=== PATIENT | male | born 1965 | race Caucasian/White ===

== ENCOUNTER → 2019-03-05 | Outpatient (CLI) | payer BC ==
[~2019-03-05] MED LIST: ALLO300 PO; BENA20 PO; BP MED; CYCL100 PO; ERGO400 PO; HYDR-86 PO; OXYACE5T PO; PRAV20 PO
[2019-03-05 19:22] LABS: Protein, Urine Random 122.2 mg/dL (0.0-11.9)
== END | disposition home or self-care (01) ==
LOC: LAB 17:10 → LAB SHORT 17:10
PROVIDERS: Internal Medicine
DX: N18.2 Chronic kidney disease, stage 2 (mild) (principal)
CPT/HCPCS: 82570; 84156

== ENCOUNTER 2019-10-08 10:49 | Observation (INO) | payer OTHER ==
[~2019-10-08] VITALS: Ht 180.3 cm; Wt 172.4 kg
[~2019-10-08 10:49] MED LIST changes: -BENA20 PO; -ERGO400 PO; -PRAV20 PO
[2019-10-08] MEDS ORDERED: AMIODARONE HCL100 MG (10:59)
[2019-10-08 12:17] LABS: BASOPHILS ABSOLUTE AUTO 0.04 K/mm3 (0.00-0.23); BASOPHILS PERCENT AUTO 0 % (0-2); EOSINOPHILS ABSOLUTE AUTO 0.07 K/mm3 (0.00-0.68); EOSINOPHILS PERCENT AUTO 0 % (0-6); IMMATURE GRAN ABSOLUTE AUTO 0.08 K/mm3 (0.00-0.10); IMMATURE GRAN PERCENT AUTO 1 % (0-1); LYMPHOCYTES ABSOLUTE AUTO 1.27 K/mm3 (0.84-5.20); LYMPHOCYTES PERCENT AUTO 8 % (21-46); MONOCYTES ABSOLUTE AUTO 1.29 K/mm3 (0.16-1.47); MONOCYTES PERCENT AUTO 8 % (4-13); Mean Corpuscular HGB 30.8 pg (26.0-34.0); Mean Corpuscular HGB Conc 32.6 g/dL (31.5-36.5); Mean Corpuscular Volume 95 fL (80-100); Mean Platelet Volume 9.9 fL (9.1-12.4); NEUTROPHILS ABSOLUTE AUTO 12.99 K/mm3 (1.96-9.15); NEUTROPHILS PERCENT AUTO 83 % (41-73); Platelet Count 220 K/mm3 (150-400); RDW Coefficient Variation 12.4 % (11.7-14.2); RDW Standard Deviation 43.4 fL (35.1-46.3); Red Blood Cell Count 4.54 M/mm3 (4.30-5.90); White Blood Cell Count 15.74 K/mm3 (4.00-11.30)
[2019-10-08 12:47] LABS: Bun/Creatinine Ratio 14.2 (12.0-20.0); Calcium, Blood 8.8 mg/dL (8.5-10.1); Creatinine, Blood 1.48 mg/dL (0.60-1.20); Potassium, Blood 3.8 mmol/L (3.5-5.5)
[2019-10-08] MEDS ORDERED: AMLODIPINE BESY10 MG PO (13:31)
[2019-10-08] MEDS ORDERED: Lotensin40 MG PO (13:31)
[2019-10-08] MEDS ORDERED: ALLO300 PO (13:32)
[2019-10-08] MEDS ORDERED: PRAV20 PO (13:32)
[2019-10-08] MEDS ORDERED: Vitamin D2000 UNIT PO (14:12)
--- NOTE | 2019-10-08 19:00 | NUR ---
SUMMARY PT ADMITTED TO THE FLOOR FROM THE ER. HE IS AWAKE, ALERT & ORIENTED x4, ON ROOM AIR, DENIES SOB AT THIS TIME. PT IS ACCOMPANIED BY HIS & DAUGHTER. PAIN MEDICATED PER EMAR PER PT REQUEST. PT INSTRUCTED TO CALL FOR ASSISTANCE PRIOR TO GETTING OOB FOR SAFETY. REPORT WAS GIVEN TO MAKENNA COX RN. CALL LIGHT IN REACH.
--- NOTE | 2019-10-08 19:57 | NUR ---
IN TO ASSESS PT AT THIS TIME.
--- NOTE | 2019-10-09 05:20 | NUR ---
patient has been able to sleep for most of the night, he is independent in the room and in the halls. PO pain medications have helped with his body aches and pains. no acute changes. patient feels that he could go home today.
--- NOTE | 2019-10-09 11:31 | NUR ---
BLOOD PRESSURE ELEVATED, PATIENT REPORTS NOT TAKING HIS USUAL HOME MEDS SINCE SUNDAY. DISCUSSED WITH DR. VEGAS. AMLODIPINE ORDERED TO BE GIVEN PRIOR TO DISCHARGE
[2019-10-09] MEDS ORDERED: OXYC5 PO (13:13)
--- NOTE | 2019-10-09 15:43 | NUR ---
SHIFT SUMMARY; PT DISCHARGED HOME TODAY AT APPROX 1415. PT EDUCATED ON PRESCRIBED PAIN MEDICATION AND PAIN MANAGEMENT. PT INSTRUCTED ON SIGNS/SYMPTOMS OF WHEN TO CALL PROVIDER. PT DISCHARGED WITHOUT ANY FURTHER QUESTIONS OR CONCERNS.
== END 2019-10-09 14:15 | disposition home or self-care (01) ==
LOC: ER 10:49 → ERHOLD 10:50 → SURS 10:50 → ERHOLD 10:50 → SURS 18:40
PROVIDERS: Emergency Medicine; ADMIT Surgery
DX: S22.42XA Multiple fractures of ribs, left side, initial encounter for closed fracture (principal); J93.9 Pneumothorax, unspecified; S00.83XA Contusion of other part of head, initial encounter; I10 Essential (primary) hypertension; M10.9 Gout, unspecified; E66.9 Obesity, unspecified; Z79.899 Other long term (current) drug therapy; V68.5XXA Driver of heavy transport vehicle injured in noncollision transport accident in traffic accident, initial encounter
CPT/HCPCS: 70450; 70486; 71260; 72125; 73110; 74177; 80048; 85025; 96374-59; 96375-59; 96376; 99285-25; A9270-GY; J1170; J2270; J2405; Q9967

== ENCOUNTER → 2019-11-09 | Outpatient (CLI) | payer OTHER ==
[~2019-11-09] MED LIST changes: +AMIODARONE HCL100 MG; +AMLODIPINE BESY10 MG PO; +Lotensin40 MG PO; +OXYC5 PO; +PRAV20 PO; +Vitamin D2000 UNIT PO
== END | disposition home or self-care (01) ==
LOC: LAB 08:30 → LAB SHORT 08:30
DX: L08.9 Local infection of the skin and subcutaneous tissue, unspecified (principal)
CPT/HCPCS: 87070; 87205

== ENCOUNTER 2025-07-25 08:55 | Inpatient (IN) | payer OTHER ==
[~2025-07-25] VITALS: Ht 177.8 cm; Wt 152.5 kg
[2025-07-25 10:40] LABS: Alanine Aminotransfer (ALT/SGP 35.0 U/L (12-78); Albumin, Blood 3.6 g/dL (3.4-5.0); Albumin/Globulin Ratio 0.9 (0.8-1.8); Anion Gap 8.0 mmol/L (3-11); Aspartate Aminotrans (AST/SGOT 22.0 U/L (12-37); Bilirubin, Total 0.7 mg/dL (0.1-1.0); Blood Urea Nitrogen 27.0 mg/dL (8-24); CO2, Blood 30.0 mmol/L (21-32); Calcium, Blood 9.8 mg/dL (8.5-10.1); Chloride, Blood 105.0 mmol/L (98-108); Creatinine, Blood 1.54 mg/dL (0.60-1.20); Globulin, Blood 3.8 g/dL (2.2-4.0); Glucose, Blood 114.0 mg/dL (70-99); Potassium, Blood 3.7 mmol/L (3.5-5.5); Sodium, Blood 139.0 mmol/L (136-145); Total Protein, Blood 7.4 g/dL (6.4-8.2)
[2025-07-25 10:41] LABS: BASOPHILS ABSOLUTE AUTO 0.05 K/mm3 (0.00-0.23); BASOPHILS PERCENT AUTO 1 % (0-2); EOSINOPHILS ABSOLUTE AUTO 0.26 K/mm3 (0.00-0.68); EOSINOPHILS PERCENT AUTO 3 % (0-6); Hematocrit 44.2 % (37.0-53.0); Hemoglobin 14.7 g/dL (13.5-17.5); IMMATURE GRAN ABSOLUTE AUTO 0.02 K/mm3 (0.00-0.10); IMMATURE GRAN PERCENT AUTO 0 % (0-1); LYMPHOCYTES ABSOLUTE AUTO 1.62 K/mm3 (0.84-5.20); LYMPHOCYTES PERCENT AUTO 18 % (21-46); MONOCYTES ABSOLUTE AUTO 0.88 K/mm3 (0.16-1.47); MONOCYTES PERCENT AUTO 10 % (4-13); Mean Corpuscular HGB Conc 33.3 g/dL (31.5-36.5); Mean Corpuscular Volume 90 fL (80-100); NEUTROPHILS ABSOLUTE AUTO 6.07 K/mm3 (1.96-9.15); NEUTROPHILS PERCENT AUTO 68 % (41-73); NRBC ABSOLUTE 0.00 K/mm3 (0.00-0.02); NRBC Auto 0.0 /100 WBC (0.0-0.2); Platelet Count 246 K/mm3 (150-400); RDW Coefficient Variation 12.1 % (11.7-14.2); RDW Standard Deviation 39.8 fL (35.1-46.3)
[2025-07-25] MEDS ORDERED: Ondansetron HCl 2 MG / ML 2ML Vial IV ONE (12:15)
[2025-07-25] MEDS ORDERED: Prochlorperazine Edisylate 10 mg Vial IV PRN (15:15)
[2025-07-25] MEDS ORDERED: FLU VACC TS2025-26(6MOS UP)/PF 45 MCG/0.5 ML SYRINGE IM SCH (15:15)
[2025-07-25] MEDS ORDERED: NS 1,000 ML IV SCH (15:15)
[2025-07-25] MEDS ORDERED: Diazepam 5 MG / ML 2ML SYR IV ONE (15:50)
[2025-07-25] MEDS ORDERED: Benzocaine Oral Spray 0.5ML UD MT ONE (15:55)
--- NOTE | 2025-07-25 16:43 | NUR ---
ADMISSION NOTE: PATIENT ARRIVED TO THE UNIT VIA GURNEY. HE WAS ABLE TO SELF TRANSFER ONTO THE BED. NG TUBE NOT PLACED; UNSUCCESSFUL X2 IN ER. DR. BRANCH NOTIFIED. CALL MADE TO DR. CAMERON IZAGUIRRE; HE STATES TO KEEP PATIENT NPO AND HE WILL BE COMING BY TO SEE THE PATIENT. PATIENT SETTLED IN ROOM, CALL LIGHT WITHIN REACH, NO SIGNS OR SYMPTOMS OF DISTRESS,PLAN OF CARE ONGOING.
[2025-07-25 16:48] VITALS: BP 131/80
[2025-07-25] MEDS ORDERED: CENTRUM SILVER1 EAC2 PO (17:00)
[2025-07-25 20:07] VITALS: BP 154/83
[2025-07-25] MEDS ORDERED: Pantoprazole Sodium 40 MG Injection IV SCH (21:00)
[2025-07-26 04:25] VITALS: BP 145/82
--- NOTE | 2025-07-26 04:55 | NUR ---
SHIFT SUMMARY PATIENT A&OX4, INDEPENDENT, ABLE TO MAKE NEEDS KNOWN, CALL LIGHT WITHIN REACH. BED AT LOWEST LEVEL, AT BEDSIDE. PATIENT DID NOT TOLERATE NG TUBE, AND GI DOC AWARE. SCHEDULED FOR A 11AM PROCEDURE EGD WITH ANESTESHIA. ENEMA PER EMAR WAS SUCCESSFUL IN PASSING WHAT THE PATIENT CLAIM WAS A SUBSTANTIAL AMOUNT OF STOOL, AFTER WORDS HAD SOME GAS PASSED BUT NONE SINCE THAT HOUR AFTER THE MED. PATIENTS FAMILY HAD SOME MORE QUESTIONS BEFORE PROCEDURE WILL LET DAYSHIFT KNOW.
[2025-07-26 05:33] LABS: Hematocrit 41.2 % (37.0-53.0); Hemoglobin 13.5 g/dL (13.5-17.5); Mean Corpuscular HGB Conc 32.8 g/dL (31.5-36.5); Mean Corpuscular Volume 92 fL (80-100); NRBC ABSOLUTE 0.00 K/mm3 (0.00-0.02); NRBC Auto 0.0 /100 WBC (0.0-0.2); Platelet Count 213 K/mm3 (150-400); RDW Coefficient Variation 12.3 % (11.7-14.2); RDW Standard Deviation 41.2 fL (35.1-46.3)
[2025-07-26 06:07] LABS: Albumin, Blood 3.4 g/dL (3.4-5.0); Anion Gap 11 mmol/L (3-11); Blood Urea Nitrogen 26 mg/dL (8-24); CO2, Blood 29 mmol/L (21-32); Calcium, Blood 9.1 mg/dL (8.5-10.1); Chloride, Blood 105 mmol/L (98-108); Creatinine, Blood 1.60 mg/dL (0.60-1.20); Glucose, Blood 106 mg/dL (70-99); Magnesium, Blood 2.1 mg/dL (1.6-2.4); Phosphorus, Blood 4.2 mg/dL (2.5-4.9); Potassium, Blood 3.7 mmol/L (3.5-5.5); Sodium, Blood 141 mmol/L (136-145)
[2025-07-26 07:24] VITALS: BP 162/89
[2025-07-26 15:32] VITALS: BP 163/87
--- NOTE | 2025-07-26 19:16 | NUR ---
ASSUMED CARE OF PT. PT UP IN BED NPO AND AWAITING FOR EGD. 1030 PT TAKEN DOWNSTAIRS FOR EGD, BUT WAS QUICKLY RETURN, PRPCEDURE TO BE PERFORMED IN THE MORNING, PT AT RISK FOR ASPIRATION AND REPEAT CT SCAN WILL BE DONE BEFORE EGD ATTEMPT. PT SPENT SHIFT AMB IN [place], DO C/O PAIN NO DISTRESS
[2025-07-26 19:30] VITALS: BP 141/80
[2025-07-27 04:45] LABS: Hematocrit 36.7 % (37.0-53.0); Hemoglobin 12.1 g/dL (13.5-17.5); Mean Corpuscular HGB Conc 33.0 g/dL (31.5-36.5); Mean Corpuscular Volume 92 fL (80-100); NRBC ABSOLUTE 0.00 K/mm3 (0.00-0.02); NRBC Auto 0.0 /100 WBC (0.0-0.2); Platelet Count 214 K/mm3 (150-400); RDW Coefficient Variation 12.3 % (11.7-14.2); RDW Standard Deviation 41.6 fL (35.1-46.3)
[2025-07-27 05:03] VITALS: BP 153/71
[2025-07-27 05:22] LABS: Albumin, Blood 3.1 g/dL (3.4-5.0); Anion Gap 9 mmol/L (3-11); Blood Urea Nitrogen 25 mg/dL (8-24); CO2, Blood 24 mmol/L (21-32); Calcium, Blood 8.2 mg/dL (8.5-10.1); Chloride, Blood 113 mmol/L (98-108); Creatinine, Blood 1.40 mg/dL (0.60-1.20); Glucose, Blood 90 mg/dL (70-99); Magnesium, Blood 2.1 mg/dL (1.6-2.4); Phosphorus, Blood 3.1 mg/dL (2.5-4.9); Potassium, Blood 3.8 mmol/L (3.5-5.5); Sodium, Blood 142 mmol/L (136-145)
--- NOTE | 2025-07-27 06:04 | NUR ---
SHIFT SUMMARY PATIENT A&OX4, INDEPENDENT, ABLE TO MAKE NEEDS KNOWN, CALL LIGHT WITHIN REACH, BED AT LOWEST LEVEL. PATIENT HAD A SMALL BM WITH COMPACTED STOOL CHUNKS, AND WHAT SEEMED TO BE UNDIGESTED CHICKEN. PATIENT STATED SOME FARTS AFTER ENEMA, BUT HAS NOT PASSED GAS AFTER ABOUT AN HOUR AFTER THE ENEMA. IT SEEMS LIKE THE STOOL HAD SOME MUCOUS STRINGY PARTS TO IT, IT WAS DARKER STOOL. GOING FOR IMAGING TODAY.
[2025-07-27 07:25] VITALS: BP 149/75
[2025-07-27 15:58] VITALS: BP 150/89
--- NOTE | 2025-07-27 17:45 | NUR ---
END OF SHIFT NOTE PATIENT RESTING IN CHAIR WITH FAMILY IN ROOM. A&O4, IND IN ROOM, AMBULATES HALLWAYS. PATIENT NPO, UNDERSTANDS PLAN. SURGERY DID NOT GO THROUGH TODAY, TALK ABOUT TRANSFER OUT TO ANOTHER HOSPITAL DUE TO RISK OF SURGERY. PATIENT AND FAMILY AWARE. DR BRANCH TALKED TO PATIENT AND FAMILY THIS EVENING AFTER NEW PLANS WERE MADE. PATIENT AWARE THIS MIGHT TAKE A DAY OR TWO. NO OTHER CONCERNS FOR THIS SHIFT.
[2025-07-27] MEDS ORDERED: PANTOPRAZOLE SO40 M2 PO (18:07)
[2025-07-27] MEDS ORDERED: ALBU90OI INH (18:07)
[2025-07-27 20:06] VITALS: BP 137/83
[2025-07-28 02:37] VITALS: BP 159/82
--- NOTE | 2025-07-28 04:41 | NUR ---
I TOOK REPORT AND ASSUMED CARE OF PT @ 7239.
[2025-07-28 04:42] LABS: BASOPHILS ABSOLUTE AUTO 0.03 K/mm3 (0.00-0.23); BASOPHILS PERCENT AUTO 1 % (0-2); EOSINOPHILS ABSOLUTE AUTO 0.28 K/mm3 (0.00-0.68); EOSINOPHILS PERCENT AUTO 5 % (0-6); Hematocrit 35.3 % (37.0-53.0); Hemoglobin 11.7 g/dL (13.5-17.5); IMMATURE GRAN ABSOLUTE AUTO 0.01 K/mm3 (0.00-0.10); IMMATURE GRAN PERCENT AUTO 0 % (0-1); LYMPHOCYTES ABSOLUTE AUTO 1.19 K/mm3 (0.84-5.20); LYMPHOCYTES PERCENT AUTO 21 % (21-46); MONOCYTES ABSOLUTE AUTO 0.53 K/mm3 (0.16-1.47); MONOCYTES PERCENT AUTO 10 % (4-13); Mean Corpuscular HGB Conc 33.1 g/dL (31.5-36.5); Mean Corpuscular Volume 91 fL (80-100); NEUTROPHILS ABSOLUTE AUTO 3.51 K/mm3 (1.96-9.15); NEUTROPHILS PERCENT AUTO 63 % (41-73); NRBC ABSOLUTE 0.00 K/mm3 (0.00-0.02); NRBC Auto 0.0 /100 WBC (0.0-0.2); Platelet Count 191 K/mm3 (150-400); RDW Coefficient Variation 12.4 % (11.7-14.2); RDW Standard Deviation 40.9 fL (35.1-46.3)
[2025-07-28 05:06] LABS: Alanine Aminotransfer (ALT/SGP 31.0 U/L (12-78); Albumin, Blood 3.1 g/dL (3.4-5.0); Albumin/Globulin Ratio 1.0 (0.8-1.8); Anion Gap 11.0 mmol/L (3-11); Aspartate Aminotrans (AST/SGOT 21.0 U/L (12-37); Bilirubin, Total 0.7 mg/dL (0.1-1.0); Blood Urea Nitrogen 23.0 mg/dL (8-24); CO2, Blood 21.0 mmol/L (21-32); Calcium, Blood 8.1 mg/dL (8.5-10.1); Chloride, Blood 116.0 mmol/L (98-108); Creatinine, Blood 1.27 mg/dL (0.60-1.20); Globulin, Blood 3.0 g/dL (2.2-4.0); Glucose, Blood 86.0 mg/dL (70-99); Potassium, Blood 3.9 mmol/L (3.5-5.5); Sodium, Blood 144.0 mmol/L (136-145); Total Protein, Blood 6.1 g/dL (6.4-8.2)
--- NOTE | 2025-07-28 05:39 | NUR ---
SHIFT SUMMARY NOC PT A/OX 4. PLEASANT AND COOPERATICE WITH CARE. VSS. NO ACUTE CHANGES TO REPORT. AM LABS ORDERED. PT REMAINS NPO AND HAS IVF INFUSING PER EMAR. PT AWAITING COBRA TRANSFER TO [facility] OR [facility] FOR ENDOSCOPIC ULTRASOUND. PT CURRENTLY RESTING WITH SPOUSE BEDSIDE, BED IN LOWEST POSITION, AND CALL LIGHT WITHIN REACH.
[2025-07-28 07:27] VITALS: BP 155/83
--- NOTE | 2025-07-28 11:23 | NUR ---
1120- VERBAL FROM JENNIFER TO GIVE PT 1L BOLUS NS AND CHANGE CONTINUOUS FLUIDS TO 150ML/HR. VERBAL TO ALSO PLACE A DIETARY CONSULT FOR PPN.
[2025-07-28] MEDS ORDERED: NS 1,000 ML IV ONE (11:25)
[2025-07-28] MEDS ORDERED: TPN Consult Notification XX ONE (12:30)
[2025-07-28] MEDS ORDERED: Albuterol HFA200 ACT/6.7 GM INH INH PRN (13:25)
[2025-07-28] MEDS ORDERED: Enalaprilat 1.25 MG/ML 2ML Vial IV PRN (13:35)
[2025-07-28 16:02] VITALS: BP 178/88
--- NOTE | 2025-07-28 16:41 | NUR ---
1513- VERBAL FROM MD RODRIGUEZ TO CHANGE CONTINUOUS FLUIDS TO 75ML/HR.
[2025-07-28] MEDS ORDERED: Parenteral Electolytes 40 ML,Potassium Phosphate Dibasic 30 MM,Multivitamins 10 ML,ZINC... IV SCH (17:00)
--- NOTE | 2025-07-28 18:33 | NUR ---
SUMMARY- AAOX4. PT IS ASKING FOR ICE CHIPS AND BRICKNER AWARE PT IS EATING SOME OCASSIONALLY. PT IS ALSO SILENCING IV PUMP WHEN IT ALARMS-PT ASKED NOT TO DO THIS. PT VERBALLY AGREED. NO ACUTE EVENTS THIS SHIFT. PT HAD A LARGE BM. IND IN ROOM AND HALLWAYS. PT WALK FREQUENTLY. ON RA. PT AND ARE ANXIOUS REGARDING PLAN AND TRANSFER TO HIGHER LEVEL OF CARE.
[2025-07-28 19:31] VITALS: BP 161/89
[2025-07-28] MEDS ORDERED: Heparin Sodium,Porcine 5,000 UNIT/0.5 ML SDV SC SCH (21:00)
[2025-07-29 05:23] LABS: Anion Gap 6 mmol/L (3-11); Blood Urea Nitrogen 20 mg/dL (8-24); CO2, Blood 25 mmol/L (21-32); Calcium, Blood 8.1 mg/dL (8.5-10.1); Chloride, Blood 115 mmol/L (98-108); Creatinine, Blood 1.12 mg/dL (0.60-1.20); Glucose, Blood 95 mg/dL (70-99); Magnesium, Blood 2.1 mg/dL (1.6-2.4); Phosphorus, Blood 2.6 mg/dL (2.5-4.9); Potassium, Blood 4.0 mmol/L (3.5-5.5); Sodium, Blood 142 mmol/L (136-145); Triglycerides 135 mg/dL (30-160)
--- NOTE | 2025-07-29 05:27 | NUR ---
SHIFT SUMMARY- - Status: Patient and family expressed concern regarding the communication level for his facility transfer. An accepting provider at [facility] is confirmed; we are currently awaiting bed availability. - Nursing Notes: Patient refused heparin injection due to concerns regarding thin blood and potential surgery. This was communicated to the Charge Nurse. - Diet: NPO. - Orientation: A/Ox4. - Ambulation: Independent in room; SBA required due to lines. - Medication: Whole with water. - Toileting: Continent x2.
[2025-07-29 05:29] VITALS: BP 159/88
[2025-07-29 07:37] VITALS: BP 149/81
--- NOTE | 2025-07-29 12:45 | NUR ---
1115- THIS RN ROUNDED WITH MD RODRIGUEZ. ALL QUESTIONS ANSWERED AT THIS TIME.
--- NOTE | 2025-07-29 12:45 | NUR ---
1240- THIS RN ROUNDED WITH ISRRAEL GARZA AT THIS TIME. ALL QUESTIONS ANSWERED AT THIS TIME.
[2025-07-29 15:58] VITALS: BP 173/89
[2025-07-29] MEDS ORDERED: Parenteral Electolytes 40 ML,Potassium Phosphate Dibasic 30 MM,Multivitamins 10 ML,ZINC... IV SCH (17:00)
--- NOTE | 2025-07-29 17:38 | NUR ---
SUMMARY- AAOX4. PT DENIES PAIN THIS SHIFT, DENIES N/V. ON RA. IN IN ROOM/HALLWAYS. NPO WITH A FEW ICE CHIPS. PT AND ADMITTED THEY HAVE BEEN ROCORDING CONVERSATIONS WITH MD RODRIGUEZ AND THAT THEY PLAN TO CONTINUE TO DO SO. THIS RN AND CHARGE RONEN RN SPOKE WITH PT AND AND INFORMED THEM THAT IF THEY PLAN TO RECORD CONVERSATIONS WITH STAFF AT [facility] THAT THEY MUST INFORM THE STAFF THAT THEY ARE BEING RECORDED PRIOR TO DOING SO, SO THAT THEY CAN BE INFORMED OF THE RECORDING. PT AND AGREED TO DO SO.
[2025-07-29 19:13] VITALS: BP 148/94
[2025-07-29 22:24] VITALS: BP 148/94
--- NOTE | 2025-07-29 22:55 | NUR ---
REPORT TO [facility]/SHIFT SUMMARY- REPORT OF PATIENT COBRA TRANSFER CALLED TO JEREMIAH TUCKER AT [facility] [phone].
== END 2025-07-30 00:34 | disposition short-term general hospital (02) | DRG 381 ==
LOC: ER 08:55 → MEDS 15:11
PROVIDERS: Emergency Medicine; Internal Medicine; ADMIT Internal Medicine
PROC: 0D9670Z Drainage of Stomach with Drainage Device, Via Natural or Artificial Opening (ICD-10-PCS; principal; 2025-07-25)
PROC: 3E0336Z Introduction of Nutritional Substance into Peripheral Vein, Percutaneous Approach (ICD-10-PCS; 2025-07-25)
PROC: 3E02340 Introduction of Influenza Vaccine into Muscle, Percutaneous Approach (ICD-10-PCS; 2025-07-25)
DX: K31.1 Adult hypertrophic pyloric stenosis (principal); Z68.42 Body mass index [BMI] 45.0-49.9, adult; K31.84 Gastroparesis; I45.10 Unspecified right bundle-branch block; R10.13 Epigastric pain; R14.0 Abdominal distension (gaseous); I12.9 Hypertensive chronic kidney disease with stage 1 through stage 4 chronic kidney disease, or unspecified chronic kidney disease; N18.9 Chronic kidney disease, unspecified; M10.9 Gout, unspecified; R63.4 Abnormal weight loss; E66.01 Morbid (severe) obesity due to excess calories; E88.810 Metabolic syndrome; Z23 Encounter for immunization; Z79.899 Other long term (current) drug therapy; Z79.891 Long term (current) use of opiate analgesic; Z85.47 Personal history of malignant neoplasm of testis; Z87.19 Personal history of other diseases of the digestive system; Z90.79 Acquired absence of other genital organ(s); Z98.890 Other specified postprocedural states
CPT/HCPCS: 36415; 71046; 74177; 76380; 80048; 80053; 80069; 82947; 83036; 83735; 84100; 84478; 85025; 85027; 93005; 93010; 96374; 96375; 99285-25; A9270; C1751; J0780; J1644; J1790; J2405; J2470; J3360; J3411; J7030; J7120; Q9967